=== PATIENT | male | born 1955 | race Caucasian/White ===

== ENCOUNTER 2016-07-24 11:49 | Emergency (ER) | payer MEDICAID ==
[2016-07-24 12:23] VITALS: PULSE 96
--- NOTE | 2016-07-24 13:47 | ED ---
Lower Extremity Injury HPI - General Chief Complaint: Extremity Injury, Lower Stated Complaint: Pain in Extremitie Time Seen by Provider: 07/24/16 13:37 Source: patient, RN notes reviewed Mode of arrival: ambulatory Limitations: no limitations - History of Present Illness Initial Comments: 61-year-old male presents emergency Department chief complaint right leg pain. Patient states symptoms started last few days. Patient states that he has pain behind his right knee and into his calf. Patient states his leg is slightly swollen. Patient denies any trauma. Patient states that there is no rashes. Denies any history of DVT denies any recent distance traveling. Patient states he has been sick over the last 4 days in which he states his symptoms are actually improving at this time. He did feel that he had a fever the other day. Patient states his also had some symptoms to have resolved. Patient states he did have some hip pain, bodyaches and other places but states currently on his right leg pain. Patient denies chest pain, shortness breath - Related Data Home Medications Medication Instructions Recorded Confirmed Aspirin EC [Ecotrin] 325 mg PO DAILY 03/03/16 07/24/16 Lisinopril-Hctz 10-12.5 mg 1 tab PO DAILY 03/03/16 07/24/16 [Zestoretic 10-12.5] Naproxen Sodium [Aleve] 220 mg PO BID PRN 03/03/16 07/24/16 traMADol HCl [Ultram] 50 mg PO BID PRN 03/03/16 07/24/16 guaiFENesin [Mucinex] 1,200 mg PO Q12H PRN 07/24/16 07/24/16 Allergies Allergy/AdvReac Type Severity Reaction Status Date / Time No Known Allergies Allergy Verified 07/24/16 14:10 Review of Systems ROS Statement: Those systems with pertinent positive or pertinent negative responses have been documented in the HPI. ROS Other: All systems not noted in ROS Statement are negative. Past Medical History Past Medical History: Hypertension, Osteoarthritis (OA) Additional Past Medical History / Comment(s): Arthritis L shoulder. History of Any Multi-Drug Resistant Organisms: None Reported Past Surgical History: Hernia Repair, Tonsillectomy Additional Past Surgical History / Comment(s): L inguinal hernia repair, colonoscopy Past Anesthesia/Blood Transfusion Reactions: No Reported Reaction Past Psychological History: No Psychological Hx Reported Additional Psychological History / Comment(s): Pt resides with his spouse. He is independent. He drives. Smoking Status: Former smoker Past Alcohol Use History: Daily Additional Past Alcohol Use History / Comment(s): Pt states he smoked cigarettes from [id number]. He infrequently smokes a cigar. Pt states most nights he will have 2 alcoholic beverages, either wine or a mixer. Past Drug Use History: None Reported - Past Family History Father Family Medical History: Cancer Additional Family Medical History / Comment(s): Pt states he was somewhat estranged from his father. He knows father had cancer and that it was either prostate or lung. Mother Family Medical History: Cancer Additional Family Medical History / Comment(s): Mother had colon cancer General Exam Limitations: no limitations General appearance: alert, in no apparent distress Head exam: Present: atraumatic, normocephalic, normal inspection ENT exam: Present: normal exam, normal oropharynx, mucous membranes moist Neck exam: Present: normal inspection, full ROM. Absent: tenderness, meningismus, lymphadenopathy Respiratory exam: Present: normal lung sounds bilaterally. Absent: respiratory distress, wheezes, rales, rhonchi, stridor Cardiovascular Exam: Present: regular rate, normal rhythm, normal heart sounds. Absent: systolic murmur, diastolic murmur, rubs, gallop, clicks Extremities exam: Present: other (Right leg there is minimal swelling noted, there is no calf tenderness and no tenderness to the popliteal fossa region. Patient's full range of motion of his right knee no warmth no erythema neurovascular intact) Neurological exam: Present: alert, oriented X3, CN II-XII intact Skin exam: Present: warm, dry, intact, normal color. Absent: rash Course Vital Signs 07/24/16 07/24/16 12:19 13:57 Temperature 98.9 F 98.8 F Pulse Rate 96 96 Respiratory 20 18 Rate Blood Pressure 175/93 150/93 O2 Sat by Pulse 97 97 Oximetry Medical Decision Making - Medical Decision Making States 1-year-old male presented for right leg pain. Concerns for possible DVT ultrasound shows no DVT. - Lab Data Lab Results 07/24/16 Range/Units 14:00 Influenza Type A RNA Not Detected (Not Detectd) Influenza Type B (PCR) Not Detected (Not Detectd) Disposition Clinical Impression: Right leg pain Disposition: HOME SELF-CARE Condition: Stable Instructions: Knee Pain (ED) Additional Instructions: Please return to the Emergency Department if symptoms worsen or any other concerns. Time of Disposition: 14:50
[2016-07-24 14:00] VITALS: BP 150/93; RESP 18; TEMP 98.8
--- NOTE | 2016-07-24 15:03 | US ---
EXAMINATION TYPE: US venous doppler duplex LE RT DATE OF EXAM: 07/24/2016 1:46 PM COMPARISON: NONE CLINICAL HISTORY: Pain. SIDE PERFORMED: Right VESSELS IMAGED: External Iliac Vein (EIV) Common Femoral Vein Deep Femoral Vein Greater Saphenous Vein * Femoral Vein Popliteal Vein Proximal Calf Veins-- color flow only (* superficial vessels) TECHNOLOGIST IMPRESSION: Right Leg: Negative for DVT Satisfactory color flow, phasicity, and compressibility is seen in the above venous structures in the right lower extremity IMPRESSION: No ultrasound evidence for acute DVT in the right lower extremity.
== END 2016-07-24 15:00 | disposition home or self-care (01) ==
LOC: EC 11:49
DX: M25.561 Pain in right knee (principal); M19.012 Primary osteoarthritis, left shoulder; I10 Essential (primary) hypertension; Z87.891 Personal history of nicotine dependence; Z79.82 Long term (current) use of aspirin; Z79.899 Other long term (current) drug therapy
CPT/HCPCS: 87502; 99284

== ENCOUNTER → 2017-12-09 | Outpatient (CLI) | payer BC ==
--- NOTE | 2017-12-09 23:42 | MR ---
EXAMINATION TYPE: MR shoulder LT wo con DATE OF EXAM: 12/09/2017 COMPARISON: NONE HISTORY: Left Shoulder Limited ROM /Chronic Pain TECHNIQUE: Multiplanar, multisequence imaging of the left shoulder is performed without contrast. FINDINGS: Rotator Cuff: Supraspinatus and infraspinatus tendons are both intact humeral head attachment. There is no evidence of significant tear. Subscapularis tendon is intact. Rotator cuff muscle bulk is prese rved. Acromioclavicular Joint: There is moderate spurring and joint space loss of acromioclavicular joint. There is loss of underlying fat plane at AC joint on paracoronal image 7. Distal acromion morphology is unremarkable. Glenohumeral Joint: There is fairly moderate to severe joint space loss with prominent osteophyte fro m the inferior medial margin of the humeral head. There is extensive subchondral cystic change involv ing the superior medial aspect of the humeral head and subchondral cystic change involving the osseou s glenoid. Labrum: The superior labrum shows gross abnormal signal and is presumed torn. Biceps Tendon: The long head of biceps is in normal location within bicipital groove. Increased signa l intracapsular portion. Coronal image 5 less well seen on parasagittal images but felt confirms para sagittal image 12 is noted. Bone marrow signal: Additional mild subchondral cystic change superolateral humeral head near rotator cuff tendon attachment is present. Other: No additional significant abnormality is appreciated. IMPRESSION: 1. Fairly advanced glenohumeral joint arthropathy with degenerative superior labral tear suspected. 2. Tendinosis/partial tear intracapsular portion long head of biceps tendon. 3. Moderate AC joint arthropathy with suspected underlying impingement. 4. No distinct rotator cuff tear.
== END | disposition home or self-care (01) ==
LOC: RADMRIMAIN 16:57
PROVIDERS: ATTEND Internal Medicine
DX: M12.812 Other specific arthropathies, not elsewhere classified, left shoulder (principal)

== ENCOUNTER → 2020-09-26 | Outpatient (CLI) | payer MEDICARE, OTHER ==
--- NOTE | 2020-09-27 03:20 | MR ---
EXAMINATION TYPE: MR ankle RT wo con DATE OF EXAM: 09/26/2020 COMPARISON: None HISTORY: RT ankle pain and swelling Multiplanar multiecho imaging of the right ankle was performed with no contrast. Ankle mortise is liza tomic. There are small areas of abnormal increased signal on the T2 images in the lateral dome of the talus, medial dome of the talus, anterior malleolus. There is narrowing of the ankle joint space. Th e Achilles tendon is intact. Plantar fascia appears intact. There is increased joint fluid at the ank le. There is mild soft tissue edema around the ankle joint. There is increased fluid in the subtalar joint. There is spurring at the talonavicular joint. There is no evidence of a fracture. There is 2 x 1.5 cm mixed signal rounded area in the anterior calcaneus that is probably a large degenerative cys t. Medial flexor tendons appear intact. The peroneus longus tendon tears to end abruptly at the level of the mid calcaneus. Peroneus brevis also appears abnormal and appears to terminate at the level of th e proximal cuboidal bone. There are some degenerative cysts forming in the inferior talus at the subt alar joint. IMPRESSION: Ankle joint effusion. Degenerative cyst formation at the ankle joint and also at the subtalar joint. Large area of complex fluid at the anterior calcaneus consistent with degenerative cyst formation wit hin the calcaneus. Osteoarthritic changes of the ankle joint. There is evidence for tears of the peroneal tendons at the level of the anterior calcaneus and proxim al cuboidal bone. Subcutaneous edema around the hindfoot and ankle.
== END | disposition home or self-care (01) ==
LOC: RADMRIMAIN 08:59
PROVIDERS: ATTEND Orthopaedic Surgery
DX: S96.811A Strain of other specified muscles and tendons at ankle and foot level, right foot, initial encounter (principal); M19.071 Primary osteoarthritis, right ankle and foot; M85.671 Other cyst of bone, right ankle and foot